=== PATIENT | female | born 1955 | race Caucasian/White ===

== ENCOUNTER 2016-08-10 13:55 | Emergency (ER) | payer BC, OTHER ==
[~2016-08-10] VITALS: Ht 157.5 cm; Wt 86.5 kg
[~2016-08-10 13:55] MED LIST: ACET1TAB84 PO; ALPR-411 PO; ESTR0.3T PO; HYZ/50125 PO; PANT40TA PO; SIMV20TA2 PO; TRAM-10 PO
[2016-08-10 14:03] VITALS: TEMP 36.8; Ht 157.5 cm; Wt 86.5 kg
[2016-08-10] MEDS ORDERED: SODIUM CHLORIDE 0.9% 1000ML 1,000 ML IV STA (15:38)
[2016-08-10] MEDS ORDERED: SODIUM CHLORIDE 0.9% 500ML 500 ML IV STA (15:38)
--- NOTE | 2016-08-10 15:40 | EMERGENCY ROOM VISIT NOTE ---
History Report prepared by Susan: Rosie Rodriguez Under the Supervision of: Dr. Vivien Murray M.D. First contact with patient: 15:34 Chief Complaint: TACHYCARDIA Stated Complaint: RACING HEART, SWEATS, ARM, WEAKNESS History of Present Illness The patient is a 60 year old female who presents to the Emergency Room with complaints of resolved tachycardia occurring 4 hours prior to arrival. The patient states that she was at work when she began to experience a racing heart , diaphoresis, and arm heaviness. These symptoms lasted for one hour. The patient did take medication that she is prescribed for anxiety which seemed to help the symptoms subside. She notes that she went and ate lunch with no difficulties or symptoms. After lunch the patient experienced the same symptoms. She currently is experiencing arm weakness, diarrhea, shortness of breath and a cough. The patient notes that for the past week she has been sick with bronchitis and this is the first day she has gone to work. She stopped Prednisone yesterday. Source of History: patient Onset: 4 hours [employer] Position: other (global) Quality: other (tachycardia) Timing: resolved Associated Symptoms: + SOB, + cough, + diaphoresis, + diarrhea, + weakness ( arm) Review of Systems See HPI for pertinent positives & negatives. A total of 10 systems reviewed and were otherwise negative. Past Medical & Surgical Medical Problems: (1) Back spasm (2) Duodenal diverticulum (3) Epigastric abdominal pain Family History No pertinent family history Social History Smoking Status: Former Smoker Drug Use: none Marital Status: Housing Status: lives with family Occupation Status: employed Current/Historical Medications Scheduled Acetaminophen (Tylenol Arthritis Ext Rel), 2 TAB PO prn Estrogens, Conjugated (Premarin), 0.3 MG PO 3XWK Hctz/Losartan (Hyzaar 12.5MG/50MG), 1 TAB PO DAILY Pantoprazole (Protonix), 40 MG PO BID Simvastatin (Zocor), 20 MG PO MWF Tramadol (Ultram), 1 TAB PO Q8H Scheduled PRN Alprazolam (Xanax), 0.5 MG PO BID PRN for Anxiety Allergies Coded Allergies: Codeine (Verified Allergy, Mild, RASH, 08/10/16) Sulfa Antibiotics (Verified Adverse Reaction, Unknown, DIZZY, 08/10/16) Physical Exam Vital Signs Date Time Temp Pulse Resp B/P Pulse Ox O2 Delivery O2 Flow Rate FiO2 2/23/17 18:08 87 16 106/62 96 Room Air 08/10/16 15:57 80 16 112/62 94 83 112/58 89 100/50 08/10/16 15:31 81 08/10/16 14:06 95 Room Air 08/10/16 14:03 36.8 83 18 117/64 95 Room Air Physical Exam Vital signs reviewed. General: Well-appearing obese female, in no significant distress. HEENT: No scleral icterus, PERRLA, neck supple. Atraumatic. Cardiovascular: Regular rate and rhythm, no extra sounds. Pulmonary: Clear to auscultation bilaterally, normal work of breathing. Abdomen: Soft, nontender, nondistended, positive bowel sounds. Musculoskeletal: Atraumatic, no peripheral edema. Neurologic: Patient awake alert and oriented x 3, full strength in all 4 extremities. Cranial nerves 2 through 12 grossly intact. Skin: Warm, dry, no rash Medical Decision & Procedures ER Provider Diagnostic Interpretation: X-ray results as stated below per interpretation by me and the radiologist: CHEST ONE VIEW PORTABLE CLINICAL HISTORY: Tachycardia. Cough. COMPARISON STUDY: Chest radiograph April 23, 2016. FINDINGS: Lung volumes are normal. There is no pneumothorax or pleural effusion. No consolidation is identified. Cardiac size is normal. Mediastinal contours are normal. There is no evidence of pulmonary edema. The appearance of the chest is unchanged. IMPRESSION: No acute cardiopulmonary findings. Electronically signed by: Zhou Márquez M.D. 08/10/2016 3:58 PM Dictated Date/Time: 08/10/2016 3:57 PM Laboratory Results 08/10/16 15:30 Red Blood Count 4.70, Mean Corpuscular Volume 87.9, Mean Corpuscular Hemoglobin 31.3, Mean Corpuscular Hemoglobin Concent 35.6, Mean Platelet Volume 8.8, Neutrophils (%) (Auto) 57.1, Lymphocytes (%) (Auto) 32.0, Monocytes (%) (Auto) 8.8, Eosinophils (%) (Auto) 0.8, Basophils (%) (Auto) 0.2, Neutrophils # (Auto) 10.47, Lymphocytes # (Auto) 5.86, Monocytes # (Auto) 1.62, Eosinophils # (Auto) 0.15, Basophils # (Auto) 0.03 2/23/17 15:30 Test 08/10/16 15:30 08/10/16 15:45 White Blood Count 18.34 K/uL (4.8-10.8) Red Blood Count 4.70 M/uL (4.2-5.4) Hemoglobin 14.7 g/dL (12.0-16.0) Hematocrit 41.3 % (37-47) Mean Corpuscular Volume 87.9 fL (80-100) Mean Corpuscular Hemoglobin 31.3 pg (25-34) Mean Corpuscular Hemoglobin Concent 35.6 g/dl (32-36) Platelet Count 335 K/uL (130-400) Mean Platelet Volume 8.8 fL (7.4-10.4) Neutrophils (%) (Auto) 57.1 % Lymphocytes (%) (Auto) 32.0 % Monocytes (%) (Auto) 8.8 % Eosinophils (%) (Auto) 0.8 % Basophils (%) (Auto) 0.2 % Neutrophils # (Auto) 10.47 K/uL (1.4-6.5) Lymphocytes # (Auto) 5.86 K/uL (1.2-3.4) Monocytes # (Auto) 1.62 K/uL (0.11-0.59) Eosinophils # (Auto) 0.15 K/uL (0-0.5) Basophils # (Auto) 0.03 K/uL (0-0.2) RDW Standard Deviation 43.3 fL (36.4-46.3) RDW Coefficient of Variation 13.5 % (11.5-14.5) Immature Granulocyte % (Auto) 1.1 % Immature Granulocyte # (Auto) 0.21 K/uL (0.00-0.02) Smudge Cells PRESENT Blood Smear Review Prothrombin Time 10.8 SECONDS (9.0-12.0) Prothromb Time International Ratio 1.0 (0.9-1.1) Activated Partial Thromboplast Time 22.3 SECONDS (21.0-31.0) Partial Thromboplastin Ratio 0.9 Anion Gap 10.0 mmol/L (3-11) Est Creatinine Clear Calc Drug Dose 40.2 ml/min Estimated GFR () 43.1 Estimated GFR (Non- 37.2 BUN/Creatinine Ratio 18.9 (10-20) Calcium Level 9.0 mg/dl (8.5-10.1) Magnesium Level 2.1 mg/dl (1.8-2.4) Total Bilirubin 0.3 mg/dl (0.2-1) Direct Bilirubin < 0.1 mg/dl (0-0.2) Aspartate Amino Transf (AST/SGOT) 15 U/L (15-37) Alanine Aminotransferase (ALT/SGPT) 29 U/L (12-78) Alkaline Phosphatase 71 U/L (45-117) Total Creatine Kinase 60 U/L (26-192) Creatine Kinase MB 0.8 ng/ml (0.5-3.6) Creatine Kinase MB Ratio 1.3 (0-3.0) Total Protein 6.6 gm/dl (6.4-8.2) Albumin 3.6 gm/dl (3.4-5.0) Bedside D-Dimer 256 ng/mlFEU (0-450) Bedside Troponin I 0.000 ng/ml (0-0.045) Laboratory results per my review. Medications Administered Medications (Trade) Dose Ordered Sig/Andre Route Start Time Stop Time Status Last Admin Dose Admin Sodium Chloride 500 ml @ 999 mls/hr Q31M STAT IV 08/10/16 15:38 08/10/16 16:08 DC 08/10/16 16:03 999 MLS/HR Sodium Chloride (Nss 1000ml) 1,000 ml @ 125 mls/hr Q8H STAT IV 08/10/16 15:38 08/10/16 19:34 DC 08/10/16 16:03 125 MLS/HR ECG Indication: other (tachycardic ) Rate (beats per minute): 83 Rhythm: normal sinus Findings: no acute ischemic change, no ectopy ED Course 1536: Past medical records reviewed. The patient was evaluated in room A3. A complete history and physical examination was performed. 1538: Sodium Chloride 1,000 ml @ 125 mls/hr IV, Sodium Chloride 500 ml @ 999 mls /hr IV. 1731: I reevaluated the patient. 5: Upon reevaluation, the patient appeared to have improvement of her symptoms. I discussed findings with her. She verbalized agreement of the treatment plan. She was discharged home. Medical Decision The patient is a 60 year old female who presents to the ED with complaints of tachycardia episode. Differentials include dehydration, pneumonia, bronchitis, cardiac arrhythmia, PVC, UTI. acute coronary syndrome. This patient was evaluated and appeared to be in no significant distress. IV access was obtained and laboratory work was drawn. Patient was placed on the media monitor. Patient is found to be in a normal sinus rhythm. Chest x-ray was performed and is negative. Patient was hydrated with normal saline solution. EKG reveals a normal sinus rhythm. Vital signs have remained stable. Laboratory work reveals a leukocytosis and a mild renal insufficiency, likely attributable to her recent prednisone therapy. Patient is afebrile 90 do not believe she is suffering from an acute infectious process. Impression Primary Impression: Heart palpitations Additional Impression: Renal insufficiency, mild Scribe Attestation The scribe's documentation has been prepared under my direction and personally reviewed by me in its entirety. I confirm that the note above accurately reflects all work, treatment, procedures, and medical decision making performed by me. Departure Information Dispostion Home / Self-Care Referrals No Doctor, Assigned (PCP) Forms HOME CARE DOCUMENTATION FORM, IMPORTANT VISIT INFORMATION, WORK / SCHOOL INSTRUCTIONS Patient Instructions My [facility] Additional Instructions Diagnosis: Heart palpitations, mild renal insufficiency Drink plenty of clear fluids. Avoid aspirin, Aleve, ibuprofen and prednisone. Rest. Follow-up with your primary care physician within the next week for reevaluation and repeat laboratory work. Return to the ER for worsening of symptoms or any medical concerns. Problem Qualifiers
[2016-08-10 15:49] LABS: HEMATOCRIT 41.3 % (37-47); MEAN CELL VOLUME 87.9 fL (80-100); MEAN CORPUSCULAR HEMOGLOBIN 31.3 pg (25-34); MEAN CORPUSCULAR HGB CONC 35.6 g/dl (32-36); MEAN PLATELET VOLUME 8.8 fL (7.4-10.4); PLATELET COUNT 335 K/uL (130-400); WHITE BLOOD COUNT 18.34 K/uL (4.8-10.8)
--- NOTE | 2016-08-10 15:59 | DIAGNOSTIC IMAGING REPORT ---
CHEST ONE VIEW PORTABLE CLINICAL HISTORY: Tachycardia. Cough. COMPARISON STUDY: Chest radiograph April 23, 2016. FINDINGS: Lung volumes are normal. There is no pneumothorax or pleural effusion. No consolidation is identified. Cardiac size is normal. Mediastinal contours are normal. There is no evidence of pulmonary edema. The appearance of the chest is unchanged. IMPRESSION: No acute cardiopulmonary findings. Electronically signed by: Zhou Márquez M.D. 08/10/2016 3:58 PM Dictated Date/Time: 08/10/2016 3:57 PM
[2016-08-10 16:00] LABS: PARTIAL THROMBOPLASTIN RATIO 0.9; PROTHROMBIN TIME (PATIENT) 10.8 SECONDS (9.0-12.0)
[2016-08-10 16:27] LABS: ALKALINE PHOSPHATASE 71 U/L (45-117); ALT/SGPT 29 U/L (12-78); AST/SGOT 15 U/L (15-37); BLOOD UREA NITROGEN 28 mg/dl (7-18); BUN/CREATININE RATIO 18.9 (10-20); CARBON DIOXIDE 28 mmol/L (21-32); CHLORIDE 101 mmol/L (98-107); CKMB/CK RATIO 1.3 (0-3.0); GLUCOSE 107 mg/dl (70-99); MAGNESIUM 2.1 mg/dl (1.8-2.4); POTASSIUM 3.4 mmol/L (3.5-5.1); SODIUM 139 mmol/L (136-145)
[2016-08-10 17:26] LABS: BASO % 0.2 %; BASO ABS # 0.03 K/uL (0-0.2); COMPLETE YES; EOS % 0.8 %; IG% 1.1 %; LYMPH ABS # 5.86 K/uL (1.2-3.4); MONO % 8.8 %; NEUT % 57.1 %
[2016-08-10 18:08] VITALS: BP 106/62; PULSE 87; O2SAT 96
[2016-08-10 20:31] LABS: SMUDGE CELLS PRESENT
[2016-09-20] MEDS ORDERED: HYDR-5688 PO (08:14)
== END 2016-08-10 18:17 | disposition home or self-care (01) ==
LOC: C.EDB 13:56 → C.EDA 18:17
DX: R00.2 Palpitations (principal); N28.9 Disorder of kidney and ureter, unspecified; Z79.899 Other long term (current) drug therapy; Z87.891 Personal history of nicotine dependence

== ENCOUNTER → 2016-08-16 | Outpatient (CLI) | payer BC ==
[~2016-08-16] MED LIST changes: +BACL1TAB PO; +HYDR-5688 PO; +METH4PAK PO
[2016-08-16 11:30] LABS: BASO % 0.2 %; BASO ABS # 0.02 K/uL (0-0.2); COMPLETE YES; EOS % 0.9 %; HEMATOCRIT 40.5 % (37-47); IG% 0.5 %; LYMPH % 26.3 %; LYMPH ABS # 2.98 K/uL (1.2-3.4); MEAN CORPUSCULAR HEMOGLOBIN 31.4 pg (25-34); MEAN CORPUSCULAR HGB CONC 35.3 g/dl (32-36); MEAN PLATELET VOLUME 9.2 fL (7.4-10.4); MONO % 9.2 %; NEUT % 62.9 %; PLATELET COUNT 292 K/uL (130-400); RED BLOOD COUNT 4.55 M/uL (4.2-5.4); WHITE BLOOD COUNT 11.31 K/uL (4.8-10.8)
[2016-08-16 11:43] LABS: ESTIMATED AVERAGE GLUCOSE 117 mg/dl; HA1C FLAG Normal (Normal)
[2016-08-16 11:47] LABS: BLOOD UREA NITROGEN 12 mg/dl (7-18); BUN/CREATININE RATIO 13.4 (10-20); CALCIUM 9.5 mg/dl (8.5-10.1); CARBON DIOXIDE 32 mmol/L (21-32); CHLORIDE 102 mmol/L (98-107); GLUCOSE 97 mg/dl (70-99); POTASSIUM 3.8 mmol/L (3.5-5.1); SODIUM 141 mmol/L (136-145)
== END | disposition home or self-care (01) ==
LOC: C.LABBC 08:18
PROVIDERS: ATTEND Internal Medicine Geriatric Medicine
DX: R53.82 Chronic fatigue, unspecified (principal); I10 Essential (primary) hypertension; K76.0 Fatty (change of) liver, not elsewhere classified; E78.5 Hyperlipidemia, unspecified; R73.9 Hyperglycemia, unspecified; R10.9 Unspecified abdominal pain

== ENCOUNTER → 2016-10-25 | Outpatient (CLI) | payer BC ==
[~2016-10-25] MED LIST changes: -HYDR-5688 PO
--- NOTE | 2016-10-25 13:17 | MAMMOGRAPHY REPORT ---
BILATERAL DIGITAL SCREENING MAMMOGRAM WITH CAD: 10/25/2016 CLINICAL HISTORY: Routine screening. Patient has no complaints. TECHNIQUE: Current study was also evaluated with a Computer Aided Detection (CAD) system. Bilatera l CC and MLO views were obtained. COMPARISON: Comparison is made to exams dated: 10/21/2015 mammogram, 10/20/2014 mammogram, 06/05/2013 m ammogram, 04/22/2012 mammogram, 04/19/2010 mammogram - [facility], and 03/26/2009. BREAST COMPOSITION: There are scattered areas of fibroglandular density in both breasts. FINDINGS: No suspicious masses, calcifications, or areas of architectural distortion are noted in e ither breast. There has been no significant interval change compared to prior exams. Scattered bilat eral benign-appearing calcifications are not significantly changed. IMPRESSION: ACR BI-RADS CATEGORY 2: BENIGN There is no mammographic evidence of malignancy. A 1 year screening mammogram is recommended. The p atient will receive written notification of the results. Approximately 10% of breast cancers are not detected with mammography. A negative mammographic repor t should not delay biopsy if a clinically suggestive mass is present. Christine Borjas M.D. /:10/25/2016 07:47:27 Lead Java [email or web address] Developer: Patricia VIDALES(R)(M), [facility] letter sent: Normal 1/2 BI-RADS Code: ACR BI-RADS Category 2: Benign
== END | disposition home or self-care (01) ==
LOC: C.MAMM 07:22
PROVIDERS: ATTEND Internal Medicine Geriatric Medicine
DX: Z12.31 Encounter for screening mammogram for malignant neoplasm of breast (principal)

== ENCOUNTER 2017-02-11 03:57 | Emergency (ER) | payer BC ==
[~2017-02-11 03:57] MED LIST changes: -BACL1TAB PO; -METH4PAK PO; -PANT40TA PO
[2017-02-11 04:01] VITALS: TEMP 36.6; Ht 157.5 cm
[2017-02-11] MEDS ORDERED: BACL1TAB PO (04:27)
[2017-02-11] MEDS ORDERED: METH4PAK PO (04:27)
[2017-02-11] MEDS ORDERED: DEXAMETHASONE SOD INJ 10 MG/ML VIAL PO ONE (04:30)
[2017-02-11] MEDS ORDERED: BACLOFEN 10 MG TAB PO ONE (04:30)
[2017-02-11 04:46] VITALS: BP 118/71; PULSE 92; O2SAT 95
--- NOTE | 2017-02-11 04:51 | EMERGENCY ROOM VISIT NOTE ---
History First contact with patient: 04:06 Chief Complaint: BACK PAIN Stated Complaint: BACK PAIN History of Present Illness The patient is a 61 year old female who presents to the Emergency Room with complaints of right mid back pain for the past several weeks described as aching , ranging in severity 7 out of 10. Movement makes it worse and nothing makes it better. Patient follows with Dr. Ibarra. Patient states normally muscle relaxants helps but states the Flexeril is not helping this time. Patient states normally she needs steroids. Pain does not radiate. Patient denies loss of bowel or bladder control, abdominal pain, saddle anesthesia, fever, chills, leg weakness, IV drug abuse. No trauma. No injury to the area. Review of Systems See HPI for pertinent positives & negatives. A total of 10 systems reviewed and were otherwise negative. Past Medical/Surgical History Medical Problems: (1) Back spasm (2) Duodenal diverticulum (3) Epigastric abdominal pain Family History No pertinent family history Social History Smoking Status: Never Smoker Drug Use: none Marital Status: Housing Status: lives with family Occupation Status: employed Current/Historical Medications Scheduled Acetaminophen (Tylenol Arthritis Ext Rel), 2 TAB PO prn Baclofen (Lioresal), 10 MG PO TID Estrogens, Conjugated (Premarin), 0.3 MG PO 3XWK Hctz/Losartan (Hyzaar 12.5MG/50MG), 1 TAB PO DAILY Methylprednisolone (Medrol Dosepak), 0 PO DAILY Simvastatin (Zocor), 20 MG PO MWF Tramadol (Ultram), 1 TAB PO Q8H Scheduled PRN Alprazolam (Xanax), 0.5 MG PO BID PRN for Anxiety Physical Exam Vital Signs Date Time Temp Pulse Resp B/P (MAP) Pulse Ox O2 Delivery O2 Flow Rate FiO2 02/11/17 04:46 92 18 118/71 95 Room Air 02/11/17 04:01 36.6 95 20 143/71 95 Room Air Pain Rating (0-10): 6.0 Physical Exam VITALS: Vitals are noted on the nurse's note and reviewed by myself. Vital signs stable. GENERAL: Pleasant female, in no acute distress, nondiaphoretic, well-developed well-nourished. SKIN: Capillary reflex less than 2 seconds. HEENT: Normocephalic. PERRLA. EOMI. Nares patent. Mucous membranes moist. Neck is supple without nuchal rigidity. HEART: Regular rate and rhythm LUNGS: Clear to auscultation bilaterally without wheezes, rales or rhonchi. No retractions or accessory muscle use. ABDOMEN: Positive bowel sounds x 4. Normal tympanic percussion. Soft, nontender, without masses or organomegaly. Gardner sign negative. No guarding or rebound tenderness. MUSCULOSKELETAL: No gross musculoskeletal defects. No pedal edema. No calf tenderness. No thoracic or lumbar tenderness on exam. Negative straight leg raise. Patient can ambulate without difficulties right mid backwinder to palpation easily replacing symptoms NEURO: Patient was alert and oriented to person place and time. Normal sensation to light and sharp touch. Deep tendon reflexes 2+ tele-bilaterally. No focal neurological deficits. Medical Decision & Procedures Medications Administered Medications (Trade) Dose Ordered Sig/Andre Route Start Time Stop Time Status Last Admin Dose Admin Dexamethasone Sodium Phosphate (Decadron Inj) 10 mg NOW ONCE PO 02/11/17 04:30 02/11/17 04:31 DC 02/11/17 04:42 10 MG Baclofen (Lioresal Tab) 10 mg ONE ONCE PO 02/11/17 04:30 02/11/17 04:31 DC 02/11/17 04:43 10 MG ED Course Prior records/ancillary studies reviewed. Triage Nursing notes reviewed. Additional history obtained from family The patient's history was concerning for back pain. Differential diagnosis: Etiologies such as musculoskeletal, disc herniation, fracture, aortic disease, metastatic disease, cord compression, discitis, infection, renal colic, gastrointestinal, acute exacerbation of chronic back pain, sciatica, cauda equina, as well as others were entertained. Physical findings: As above. No focal neurologic findings noted. ER treatment provided: Decadron, baclofen On reassessment the patient felt better. Diagnostics interpreted by me: Imaging studies: Her MRI of 2014 was reviewed the spine This appears to be consistent with thoracic strain. Patient was neurovascularly and neurologically intact. She was well-appearing. She requested steroids and a muscle relaxant. I felt this is reasonable. She was advised to stretch the area and take medications as directed. She is advised to follow-up with her back doctor in a few days or here in the ER sooner for severe pain, numbness, tingling, worsening signs or symptoms or as needed. The patient's physical examination and detailed history did not reveal any red flags for back pain such as those listed in the differential diagnosis. Therefore advanced diagnostics and consultations were felt to be unwarranted. By the evaluation outlined above emergent etiologies such as fracture, aortic disease, metastatic disease, infection, renal colic, gastrointestinal, cord compression, cauda equina, as well as others were deemed relatively unlikely. The pt informed about the findings as listed above. All questions were answered and pleased with the treatment. Return instructions were outlined and the patient was discharged in stable condition. Outpatient prescription management: Baclofen Medrol Dosepak Referral: The patient was referred back to spine and primary care physician for follow-up in 2 to 3 days for a recheck of the current condition. Medical Decision As above [place] Drug Monitoring Program Search Results: patient reviewed within database, no issues identified Medication Reconcilliation Current Medication List: was personally reviewed by me Blood Pressure Screening Patient's blood pressure: Normal blood pressure Impression Primary Impression: Back strain Departure Information Dispostion Home / Self-Care Condition GOOD Prescriptions Methylprednisolone (MEDROL DOSEPAK) 4 Mg Sunny 0 PO DAILY, #1 PKT Prov: Stephanie Perea .RICHMOND 02/11/17 Baclofen (LIORESAL) 10 Mg Tab 10 MG PO TID, #20 TAB Prov: Stephanie Perea PA-C 02/11/17 Forms HOME CARE DOCUMENTATION FORM, IMPORTANT VISIT INFORMATION Patient Instructions Back Pain - [facility] Additional Instructions Medrol dosepak: Once daily until the prescription is finished. It is best to take this earlier in the day as some patients note occasional difficulty falling asleep when taken in the late evening. Baclofen 10 m tablet every 8 hours as needed for muscle tightness. Ibuprofen(Motrin, Advil) may be used for fever or pain. Use 600mg every six hours as needed. Take with food. Avoid using more than 2400mg in a 24 hour period. Do not use 2400mg per day for more than three consecutive days without physician direction. Prolonged inappropriate use can lead to stomach upset or ulcers. This medication can be taken if you need to drive, work, or perform activities which may be dangerous when taking narcotic pain medication. (AND/OR) Acetaminophen(Tylenol) may be used for fever or pain. Use 500mg every six hours as needed. Avoid using more than 2000mg in a 24 hour period. This medication can be taken if you need to drive, work, or perform activities which may be dangerous when taking narcotic pain medication. Rest and avoid heavy lifting until your symptoms resolve and then gradually return to full activity. A good rule of thumb is if it hurts your back to perform a certain activity, then it should be avoided until you are healthy again. A heating pad, warm compresses, or a hot shower may help with tight muscles and can be done several times a day as needed. Continue current medications. Return to the ER immediately for any numbness, tingling, severe pain, loss of control of your bowels or bladder, inability to walk, or as needed. Follow up with your orthopedic spine doctor in 2-3 days, call for an appointment. Problem Qualifiers Primary Impression: Back strain Encounter type: initial encounter Qualified Codes: S39.012A - Strain of muscle, fascia and tendon of lower back, initial encounter
== END 2017-02-11 04:46 | disposition home or self-care (01) ==
LOC: C.EDB 03:58
DX: S39.012A Strain of muscle, fascia and tendon of lower back, initial encounter (principal); X58.XXXA Exposure to other specified factors, initial encounter

== ENCOUNTER → 2017-02-20 | Outpatient (CLI) | payer BC ==
[~2017-02-20] MED LIST changes: +BACL1TAB PO; +METH4PAK PO
--- NOTE | 2017-02-20 08:22 | DIAGNOSTIC IMAGING REPORT ---
MRI OF THE LUMBAR SPINE WITHOUT CONTRAST CLINICAL HISTORY: Spinal stenosis. Low back pain radiating to both lower extremities. COMPARISON STUDY: Lumbar spine MRI June 08, 2015. TECHNIQUE: Utilizing a 1.5 Ophelia magnet and dedicated coil, multiplanar, multiecho imaging of the lumbar spine was performed without IV contrast. FINDINGS: For purposes of numbering on this exam, the L5-S1 disc space is assigned to axial image 33 of 36. There is slight retrolisthesis of L1 on L2 and L2 on L3. This is unchanged as MRI of June 08, 2015. There is no intracanalicular mass or fluid collection. Conus terminates at the lower L1 level. Paravertebral soft tissues are unremarkable. L1-2: There is disc space narrowing with a disc bulge and a superimposed central disc protrusion. This results in mild narrowing of the central canal. The neural foramen are patent. This is unchanged since prior MRI. L2-3: There is disc space narrowing with disc bulge and a superimposed right paracentral/right foraminal disc protrusion. Note is made of moderate narrowing the right lateral recess and right neural foramen. This is similar to prior MRI. Left neural foramen is patent. L3-4: There is facet arthrosis. Central canal and neural foramen are patent. L4-5: Central canal and neural foramen are patent. L5-S1: The central canal and neural foramen are patent. IMPRESSION: 1. Disc bulge with superimposed central disc protrusion at L1-L2 that results in mild narrowing of the central canal which is similar to MRI of June 08, 2015. 2. Disc bulge with superimposed right paracentral/right foraminal disc protrusion at L2-L3 that results in moderate narrowing of the right lateral recess and right neural foramen that is similar to prior MRI. 3. No change since MRI of June 08, 2015. Electronically signed by: Zhou Márquez M.D. 02/20/2017 8:20 AM Dictated Date/Time: 02/20/2017 7:56 AM
== END | disposition home or self-care (01) ==
LOC: C.MRIBC 06:45
PROVIDERS: ATTEND Orthopaedic Surgery Orthopaedic Surgery of the Spine
DX: M51.26 Other intervertebral disc displacement, lumbar region (principal); M48.06 Spinal stenosis, lumbar region

== ENCOUNTER → 2017-10-29 | Outpatient (CLI) | payer BC ==
[~2017-10-29] MED LIST changes: -BACL1TAB PO; -METH4PAK PO
--- NOTE | 2017-10-29 15:25 | MAMMOGRAPHY REPORT ---
BILATERAL DIGITAL SCREENING MAMMOGRAM TOMOSYNTHESIS WITH CAD: 10/29/2017 CLINICAL HISTORY: Routine screening. Patient has no complaints. TECHNIQUE: Breast tomosynthesis in addition to standard 2D mammography was performed. Current study was also evaluated with a Computer Aided Detection (CAD) system. COMPARISON: Comparison is made to exams dated: 10/25/2016 mammogram, 10/21/2015 mammogram, 10/20/2014 yamileth mogram, 06/05/2013 mammogram, 05/02/2012 ultrasound, and 05/02/2012 mammogram - [facility]. BREAST COMPOSITION: There are scattered areas of fibroglandular density in both breasts. FINDINGS: There is evidence of prior reduction mammoplasty. There are a few benign coarse calcificat ions in the breasts. Minimal vascular calcification. No suspicious mass, architectural distortion o r cluster of microcalcifications is seen. IMPRESSION: ACR BI-RADS CATEGORY 1: NEGATIVE There is no mammographic evidence of malignancy. A 1 year screening mammogram is recommended. The pa tient will receive written notification of the results. Approximately 10% of breast cancers are not detected with mammography. A negative mammographic report should not delay biopsy if a clinically suggestive mass is present. Mali Foley M.D. ay/:10/29/2017 07:55:47 [employer]: Lanny Adame, [facility] letter sent: Normal 1/2 BI-RADS Code: ACR BI-RADS Category 1: Negative
== END | disposition home or self-care (01) ==
LOC: C.MAMM 07:10
PROVIDERS: ATTEND Internal Medicine Geriatric Medicine
DX: Z12.31 Encounter for screening mammogram for malignant neoplasm of breast (principal)